=== PATIENT | male | born 1960 | race Two or more races ===

== ENCOUNTER → 2024-12-29 | Day surgery (SDC) | payer OTHER ==
[~2024-12-29] MED LIST: CIPROFLOXACIN 400MG/200ML 200 ML IV ONE
== END | disposition home or self-care (01) ==
LOC: EEVIPCON 10-27 11:00 → SUR 06:03
PROVIDERS: ATTEND Urology
DX: R97.20 Elevated prostate specific antigen [PSA] (principal); Z53.8 Procedure and treatment not carried out for other reasons; N40.0 Benign prostatic hyperplasia without lower urinary tract symptoms; I10 Essential (primary) hypertension; G20.A1 Parkinson's disease without dyskinesia, without mention of fluctuations; Z20.822 Contact with and (suspected) exposure to COVID-19

== ENCOUNTER 2025-01-12 06:31 | Day surgery (SDC) | payer OTHER ==
[~2025-01-12] VITALS: Ht 177.8 cm; Wt 77.1 kg
[2025-01-12] MEDS ORDERED: MEPERIDINE HCL (25 MG/ML) 1ML VIAL ONE (08:54)
[2025-01-12] MEDS ORDERED: SODIUM CHLORIDE LOCK 10 ML ONE (08:54)
[2025-01-12] MEDS ORDERED: PROPOFOL 10 MG/ML 20 ML IV ONE (08:54)
[2025-01-12] MEDS ORDERED: ONDANSETRON HCL 4 MG/2 ML VIAL ONE (08:54)
[2025-01-12] MEDS ORDERED: MIDAZOLAM HCL 2MG/2ML 2ml VIAL (1mg/ml) ONE (08:54)
[2025-01-12] MEDS ORDERED: fentaNYL CITRATE 100 MCG/2 ML VL ONE (08:54)
[2025-01-12] MEDS ORDERED: METOCLOPRAMIDE HCL 5MG/ml INJ 2ml VIAL IV ONE (09:45)
[2025-01-12] MEDS ORDERED: HYDROmorphone HCL 2 MG/ML VL/or syr IV PRN ×2 (09:45)
[2025-01-12] MEDS ORDERED: MORPHINE SULFATE INJ 2 MG/ml SYRG IV PRN (09:45)
[2025-01-12] MEDS ORDERED: MORPHINE SULFATE 4 MG/ML SYR/VIAL IV PRN (09:45)
[2025-01-12] MEDS: CIPROFLOXACIN 400MG/200ML 200 ML IV ONE (09:50)
[2025-01-12 10:13] VITALS: PULSE 83; RESP 23; TEMP 98.9; O2SAT 95
--- NOTE | 2025-01-12 10:16 | DVHNC2 ---
Procedure - OPERATIVE REPORT Pre-op. Diagnosis: Elevated PSA Post-op. Diagnosis: Same as pre-op diagnosis Operation: Prostate Biopsyl, saturation extended pattern - CPT 36597 Transrectal ultrasound - CPT 17296 Anesthesia: MACDr. Malone Indications: Patient has a history of rising PSA. Patient had been prepped with enema, was started on antibiotics and had abstained from blood thinners for at least 7 days.Complication including but not limited to infection, bleeding into urethra, bladder, rectum, ejaculate, as well as urinary retention were discussed, informed consent was obtained. Details of Procedure: Patient was placed in the position. A trans-rectal ultrasound was inserted, prostate was measured at 47 grams. Bilateral periprostatic nerve block is administered. Next, extended twelve core biopsies were obtained thru a transrectall technique and under real-time ultrasound. Patient tolerated the procedure well and was transferred to the recovery in sat isfactory condition. Specimens: 12 Cores Complications: None UMANG GROSS MD Jan 12, 2025 10:16
--- NOTE | 2025-01-12 10:17 | DVHDS2 ---
New Physician D'charge PN Admitting Diagnosis Admitting Diagnosis Elevated PSA Discharge Diagnosis Same Operations or Procedures Transrectal ultrasound-guided prostate biopsy Reason(s) For Hospitalization Surgery Treatment Plan Discharge Condition of Discharge Good Disposition Home Discharge Instructions Diet: Regular Activity: Light activity Activity comment: As tolerated Medications: Given Follow Up Care Follow Up/Referral: Two weeks for pathology results Discharge Statement: "Patient was advised to return to the ER or call 911 if any headaches, dizziness, shortness of breath, chest pain, abdominal pain, bleeding, fevers, or worsening of medical condition. Patient was counseled about treatment plan, medications, possible side effects, patientverbalized understanding. All questions were answered to the best of my ability. This discharge took greater then 30 minutes in planning, reviewing documentation, counseling the patient, and discussing with other team members." UMANG GROSS MD Jan 12, 2025 10:17
[2025-01-12 10:43] VITALS: BP 155/82; PULSE 77; RESP 17; O2SAT 97
== END 2025-01-12 11:00 | disposition home or self-care (01) ==
LOC: EEVIPCON → SUR 06:31
PROVIDERS: ATTEND Urology
DX: R97.20 Elevated prostate specific antigen [PSA] (principal); I10 Essential (primary) hypertension; E78.5 Hyperlipidemia, unspecified; E66.9 Obesity, unspecified; Z68.33 Body mass index [BMI] 33.0-33.9, adult; Z79.899 Other long term (current) drug therapy; Z98.890 Other specified postprocedural states
CPT/HCPCS: 55700; 76872; 88305; 88342; J0744; J2175; J2250; J2405; J2704; J3010